=== PATIENT | female | born 1965 | race Asian ===

== ENCOUNTER 2024-12-04 06:26 | Emergency (ER) | payer MEDICARE ==
[~2024-12-04] VITALS: Ht 157.5 cm; Wt 65.9 kg
[2024-12-04 06:35] VITALS: TEMP 97.8
[2024-12-04] MEDS: DEXAMETHASONE SOD PHOS 4 MG/ML 5 ML VIAL IVP ONE (07:11)
[2024-12-04] MEDS: FAMOTIDINE 20 MG/2 ML VIAL IVP ONE (07:11)
[2024-12-04] MEDS: SODIUM CHLORIDE 0.9% 500 ML IV ONE (07:11)
[2024-12-04] MEDS ORDERED: PRED-554 PO (08:24)
[2024-12-04] MEDS ORDERED: DIPH25CA85 PO (08:24)
[2024-12-04 08:39] VITALS: BP 125/75; PULSE 62; RESP 18; O2SAT 100
== END 2024-12-04 08:40 | disposition home or self-care (01) ==
LOC: EMS 06:45
DX: T63.441A Toxic effect of venom of bees, accidental (unintentional), initial encounter (principal); R21 Rash and other nonspecific skin eruption; E78.00 Pure hypercholesterolemia, unspecified; I10 Essential (primary) hypertension; F17.210 Nicotine dependence, cigarettes, uncomplicated; Z91.030 Bee allergy status; Y92.89 Other specified places as the place of occurrence of the external cause
CPT/HCPCS: 99284; 96374; 96375; 96361; J1100; J1200; J3490; J7040